=== PATIENT | male | born 1940 | race Caucasian/White ===

== ENCOUNTER 2018-04-09 06:07 | Inpatient (IN) | payer BC ==
[2018-04-09] MEDS: ACETAMINOPHEN 325 MG TAB PO (06:57)
[2018-04-09] MEDS: SODIUM CHLORIDE 0.9% 1L BAG IV* ×2 (06:58→13:18)
[2018-04-09 07:05] LABS: ADD MAN DIFF? NO
[2018-04-09 07:11] LABS: BASOPHIL # 0.1 10^3/ul (0.0-0.1); BASOPHILS % 0.7 % (0.0-2.0); EOSINOPHILS # 0.2 10^3/ul (0.0-0.5); EOSINOPHILS % 1.5 % (0.0-7.0); HEMATOCRIT 40.4 % (42.0-52.0); HEMOGLOBIN 13.5 g/dl (14.0-18.0); LYMPHOCYTES # 1.5 10^3/ul (0.8-2.9); LYMPHOCYTES % 11.6 % (15.0-51.0); MEAN CORPUSCULAR HEMOGLOBIN 27.7 pg (29.0-33.0); MEAN CORPUSCULAR HGB CONC 33.4 g/dl (32.0-37.0); MEAN CORPUSCULAR VOLUME 82.8 fl (82.0-101.0); MEAN PLATELET VOLUME 10.1 fl (7.4-10.4); MONOCYTE # 1.1 10^3/ul (0.3-0.9); MONOCYTES % 8.7 % (0.0-11.0); NEUTROPHIL # 9.9 10^3/ul (1.6-7.5); NEUTROPHILS % 76.9 % (39.0-77.0); PLATELET COUNT 395 10^3/UL (140-415); RED BLOOD COUNT 4.88 10^6/ul (4.70-6.10); RED CELL DISTRIBUTION WIDTH 14.9 % (11.5-14.5)
[2018-04-09 07:11] LABS: WHITE BLOOD COUNT 12.8 10^3/ul (4.8-10.8)
[2018-04-09] MEDS: DILTIAZEM 25 MG INJ IV (07:23)
[2018-04-09 07:27] LABS: ALANINE AMINOTRANSFERASE 22 IU/L (13-69); ALBUMIN 4.2 g/dl (3.3-4.9); ALBUMIN/GLOBULIN RATIO 1.44; ALKALINE PHOSPHATASE 63 IU/L (42-121); ANION GAP 15 (5-13); ASPARTATE AMINO TRANSFERASE 28 IU/L (15-46); BILIRUBIN,INDIRECT 0.5 mg/dl (0-1.1); BILIRUBIN,TOTAL 0.5 mg/dl (0.2-1.3); BLOOD UREA NITROGEN 10 mg/dl (7-20); CALCIUM 9.2 mg/dl (8.4-10.2); CARBON DIOXIDE 25 mmol/L (21-31); CHLORIDE 99 mmol/L (97-110); CREATININE 0.78 mg/dl (0.61-1.24); GLUCOSE 160 mg/dl (70-220); POTASSIUM 3.9 mmol/L (3.5-5.1); SODIUM 139 mmol/L (135-144); TOTAL PROTEIN 7.1 g/dl (6.1-8.1)
[2018-04-09 07:30] LABS: INR 0.98; PROTIME 13.1 Sec (11.9-14.9)
[2018-04-09 07:31] LABS: PARTIAL THROMBOPLASTIN TIME 31.6 Sec (23.0-35.0)
[2018-04-09 07:38] LABS: TROPONIN-I < 0.012 ng/ml (0.000-0.120)
[2018-04-09] MEDS: CEFTRIAXONE 1 GM/50 ML (PMX) 50 ML IVPB (08:02)
[2018-04-09] MEDS: AZITHROMYCIN 500MG/NS (PMX) 250 ML IVPB (08:29)
[2018-04-09 08:34] LABS: ADD UMIC NO; UR ASCORBIC ACID NEGATIVE (NEGATIVE); UR BILIRUBIN (Dip) NEGATIVE (NEGATIVE); UR BLOOD (Dip) NEGATIVE (NEGATIVE); UR CLARITY CLEAR (CLEAR); UR COLOR STRAW (YELLOW); UR GLUCOSE (Dip) NEGATIVE (NEGATIVE); UR KETONES (Dip) NEGATIVE (NEGATIVE); UR LEUKOCYTE ESTERASE (Dip) NEGATIVE Leu/ul (NEGATIVE); UR NITRITE (Dip) NEGATIVE (NEGATIVE); UR SPECIFIC GRAVITY (Dip) 1.005 (1.003-1.030); UR TOTAL PROTEIN (Dip) NEGATIVE (NEGATIVE); UR UROBILINOGEN (Dip) NEGATIVE (NEGATIVE)
[2018-04-09] MEDS ORDERED: GLUCOSE GEL 15 GRAM TUBE BUCCAL (09:00)
[2018-04-09] MEDS ORDERED: NACL 0.9% 3 ML SYG IV (09:00)
[2018-04-09] MEDS ORDERED: DEXTROSE 50% 50 ML SYRINGE IV ×2 (09:00)
[2018-04-09] MEDS ORDERED: ONDANSETRON 4 MG INJ IV (09:00)
[2018-04-09] MEDS ORDERED: ASPIRIN 81 MG TAB PO (09:00)
[2018-04-09] MEDS ORDERED: GLUCOSE GEL 15 GRAM TUBE PO ×2 (09:00)
[2018-04-09] MEDS ORDERED: GLUCAGON 1 MG INJ IM (09:00)
[2018-04-09] MEDS ORDERED: ENOXAPARIN 80 MG/0.8 ML SYG SC (09:00)
[2018-04-09] MEDS ORDERED: LEVALBUTEROL (NEB) 0.31 MG/3 ML AMP HHN (09:00)
[2018-04-09] MEDS ORDERED: morphine 4 MG/ML VIAL IV (09:00)
[2018-04-09] MEDS: GUAIFENESIN/DM 5ML CUP PO ×3 (10:11→23:37)
[2018-04-09] MEDS: AMLODIPINE 10 MG TAB PO (10:12)
[2018-04-09] MEDS: METOPROLOL (XL) 100 MG TAB PO (10:12)
[2018-04-09] MEDS: DOXAZOSIN 2 MG TAB PO (10:13)
[2018-04-09] MEDS: ATORVASTATIN 20 MG TAB PO (10:13)
[2018-04-09] MEDS: HYDROCHLOROTHIAZIDE 25 MG TAB PO (10:13)
[2018-04-09] MEDS: LISINOPRIL 20 MG TAB PO (10:13)
[2018-04-09] MEDS: DOCUSATE SODIUM 100 MG CAP PO ×2 (10:16→21:52)
[2018-04-09] MEDS: INSULIN GLARGINE [LANTus] (100 UNITS/ML) SYG SC (10:47)
[2018-04-09] MEDS: GUAIFENESIN/DM (SR) TAB PO (11:49)
[2018-04-09] MEDS: INSULIN ASPART [NOVOLOG] 3 ML PEN SC ×3 (12:00→21:00)
[2018-04-09 12:26] LABS: LACTIC ACID 2.3 mmol/L (0.5-2.0)
[2018-04-09] MEDS: APIXABAN 5 MG TABLET PO ×2 (13:18→21:52)
[2018-04-09 15:07] LABS: CREATINE KINASE 226 IU/L (23-200)
[2018-04-09 15:19] LABS: CK INDEX 0.5; CK-MB 1.19 ng/ml (0.0-2.4); TROPONIN-I < 0.012 ng/ml (0.000-0.120)
[2018-04-09 18:56] LABS: CREATINE KINASE 287 IU/L (23-200)
[2018-04-09 18:57] LABS: LACTIC ACID 1.4 mmol/L (0.5-2.0)
[2018-04-09 19:07] LABS: CK INDEX 0.5
[2018-04-09 19:11] LABS: CK-MB 1.31 ng/ml (0.0-2.4); TROPONIN-I < 0.012 ng/ml (0.000-0.120)
[2018-04-10] MEDS: ACCU-CHEK XX (02:00)
[2018-04-10 05:53] LABS: ADD MAN DIFF? NO
[2018-04-10 05:54] LABS: BASOPHIL # 0.1 10^3/ul (0.0-0.1); BASOPHILS % 1.1 % (0.0-2.0); EOSINOPHILS # 0.3 10^3/ul (0.0-0.5); EOSINOPHILS % 2.8 % (0.0-7.0); HEMATOCRIT 36.1 % (42.0-52.0); LYMPHOCYTES % 21.9 % (15.0-51.0); MEAN CORPUSCULAR HEMOGLOBIN 27.6 pg (29.0-33.0); MEAN CORPUSCULAR HGB CONC 33.2 g/dl (32.0-37.0); MEAN PLATELET VOLUME 10.3 fl (7.4-10.4); MONOCYTE # 1.5 10^3/ul (0.3-0.9); MONOCYTES % 16.2 % (0.0-11.0); NEUTROPHIL # 5.3 10^3/ul (1.6-7.5); NEUTROPHILS % 57.3 % (39.0-77.0); PLATELET COUNT 337 10^3/UL (140-415); RED BLOOD COUNT 4.35 10^6/ul (4.70-6.10); RED CELL DISTRIBUTION WIDTH 15.1 % (11.5-14.5)
[2018-04-10 05:54] LABS: WHITE BLOOD COUNT 9.2 10^3/ul (4.8-10.8)
[2018-04-10 06:28] LABS: ALANINE AMINOTRANSFERASE 22 IU/L (13-69); ALBUMIN 3.7 g/dl (3.3-4.9); ALBUMIN/GLOBULIN RATIO 1.42; ALKALINE PHOSPHATASE 52 IU/L (42-121); ANION GAP 11 (5-13); ASPARTATE AMINO TRANSFERASE 31 IU/L (15-46); BILIRUBIN,INDIRECT 0.2 mg/dl (0-1.1); BILIRUBIN,TOTAL 0.2 mg/dl (0.2-1.3); BLOOD UREA NITROGEN 14 mg/dl (7-20); CALCIUM 8.9 mg/dl (8.4-10.2); CARBON DIOXIDE 28 mmol/L (21-31); CHLORIDE 99 mmol/L (97-110); CHOL/HDL RATIO 2.6 RATIO; CHOLESTEROL 73 mg/dl (100-200); CREATININE 0.87 mg/dl (0.61-1.24); GLUCOSE 125 mg/dl (70-220); HDL CHOLESTEROL 28 mg/dl (31-75); LDL CHOLESTEROL,CALCULATED 27 mg/dl; PHOSPHORUS 3.8 mg/dl (2.5-4.9); SODIUM 138 mmol/L (135-144); TOTAL PROTEIN 6.3 g/dl (6.1-8.1); TRIGLYCERIDES 90 mg/dl (0-149)
[2018-04-10 06:53] LABS: THYROID STIMULATING HORMONE 0.536 MIU/L (0.465-4.680)
[2018-04-10] MEDS: INSULIN ASPART [NOVOLOG] 3 ML PEN SC ×4 (08:00→20:01)
[2018-04-10] MEDS: ATORVASTATIN 20 MG TAB PO (08:03)
[2018-04-10] MEDS: GUAIFENESIN/DM (SR) TAB PO (08:03)
[2018-04-10] MEDS: DOCUSATE SODIUM 100 MG CAP PO ×2 (08:03→20:01)
[2018-04-10] MEDS: APIXABAN 5 MG TABLET PO ×2 (08:03→20:02)
[2018-04-10] MEDS: HYDROCHLOROTHIAZIDE 25 MG TAB PO (08:04)
[2018-04-10] MEDS: AMLODIPINE 10 MG TAB PO (08:04)
[2018-04-10] MEDS: LISINOPRIL 20 MG TAB PO (08:04)
[2018-04-10] MEDS: METOPROLOL (XL) 100 MG TAB PO (08:04)
[2018-04-10] MEDS: DOXAZOSIN 2 MG TAB PO (08:04)
[2018-04-10] MEDS: INSULIN GLARGINE [LANTus] (100 UNITS/ML) SYG SC (08:10)
[2018-04-10] MEDS: AZITHROMYCIN 250 MG TAB PO (08:15)
[2018-04-10] MEDS: AMOXICILLIN 500 MG CAP PO ×2 (11:23→22:45)
[2018-04-10] MEDS: GUAIFENESIN/DM 5ML CUP PO ×2 (14:14→19:44)
[2018-04-10] MEDS: METOPROLOL 50 MG TAB PO (15:45)
[2018-04-10] MEDS: CEPASTAT LOZENGE MT (19:44)
[2018-04-10] MEDS: ACETAMINOPHEN 325 MG TAB PO (20:02)
[2018-04-11] MEDS: ACCU-CHEK XX (02:00)
[2018-04-11] MEDS ORDERED: VITAMIN A & D 5 GM OINT PACKET TOP (03:03)
[2018-04-11] MEDS: GUAIFENESIN/DM 5ML CUP PO (03:52)
[2018-04-11 05:21] LABS: ADD MAN DIFF? NO
[2018-04-11 05:26] LABS: WHITE BLOOD COUNT 7.1 10^3/ul (4.8-10.8)
[2018-04-11 05:26] LABS: BASOPHIL # 0.1 10^3/ul (0.0-0.1); EOSINOPHILS # 0.3 10^3/ul (0.0-0.5); EOSINOPHILS % 4.4 % (0.0-7.0); HEMATOCRIT 38.5 % (42.0-52.0); HEMOGLOBIN 12.9 g/dl (14.0-18.0); LYMPHOCYTES # 2.4 10^3/ul (0.8-2.9); LYMPHOCYTES % 33.9 % (15.0-51.0); MEAN CORPUSCULAR HEMOGLOBIN 27.5 pg (29.0-33.0); MEAN CORPUSCULAR HGB CONC 33.5 g/dl (32.0-37.0); MEAN CORPUSCULAR VOLUME 82.1 fl (82.0-101.0); MEAN PLATELET VOLUME 9.8 fl (7.4-10.4); MONOCYTE # 1.3 10^3/ul (0.3-0.9); MONOCYTES % 18.1 % (0.0-11.0); NEUTROPHILS % 41.9 % (39.0-77.0); PLATELET COUNT 327 10^3/UL (140-415); RED BLOOD COUNT 4.69 10^6/ul (4.70-6.10); RED CELL DISTRIBUTION WIDTH 14.8 % (11.5-14.5)
[2018-04-11 06:13] LABS: ANION GAP 9 (5-13); BLOOD UREA NITROGEN 18 mg/dl (7-20); CALCIUM 8.7 mg/dl (8.4-10.2); CARBON DIOXIDE 28 mmol/L (21-31); CHLORIDE 99 mmol/L (97-110); CREATININE 0.85 mg/dl (0.61-1.24); GLUCOSE 148 mg/dl (70-220); POTASSIUM 3.5 mmol/L (3.5-5.1); SODIUM 136 mmol/L (135-144)
[2018-04-11] MEDS: CEPASTAT LOZENGE MT (07:08)
[2018-04-11] MEDS: AMOXICILLIN 500 MG CAP PO ×2 (07:08→13:09)
[2018-04-11] MEDS: SOD CHLORIDE 0.9% 100 ML (07:38)
[2018-04-11] MEDS: IODIXANOL LOCM 100 ML BTL (07:38)
[2018-04-11 07:40] LABS: HEMOGLOBIN A1C 6.4 % (0-5.9)
[2018-04-11] MEDS: INSULIN ASPART [NOVOLOG] 3 ML PEN SC ×2 (07:43→12:12)
[2018-04-11] MEDS: ATORVASTATIN 20 MG TAB PO (08:22)
[2018-04-11] MEDS: METOPROLOL (XL) 100 MG TAB PO (08:22)
[2018-04-11] MEDS: LISINOPRIL 20 MG TAB PO (08:22)
[2018-04-11] MEDS: APIXABAN 5 MG TABLET PO (08:22)
[2018-04-11] MEDS: DOXAZOSIN 2 MG TAB PO (08:22)
[2018-04-11] MEDS: DOCUSATE SODIUM 100 MG CAP PO (08:23)
[2018-04-11] MEDS: HYDROCHLOROTHIAZIDE 25 MG TAB PO (08:23)
[2018-04-11] MEDS: AZITHROMYCIN 250 MG TAB PO (08:23)
[2018-04-11] MEDS: AMLODIPINE 10 MG TAB PO (08:23)
[2018-04-11] MEDS: INSULIN GLARGINE [LANTus] (100 UNITS/ML) SYG SC (08:33)
[2018-04-11] MEDS: GUAIFENESIN/DM (SR) TAB PO (08:39)
== END 2018-04-11 13:00 | disposition home or self-care (01) | DRG 872 ==
LOC: E/R 06:07 → 6WM 07:51
DX: A41.9 Sepsis, unspecified organism (principal); I48.0 Paroxysmal atrial fibrillation; I25.10 Atherosclerotic heart disease of native coronary artery without angina pectoris; I10 Essential (primary) hypertension; E78.00 Pure hypercholesterolemia, unspecified; J02.9 Acute pharyngitis, unspecified; E11.9 Type 2 diabetes mellitus without complications; Z79.84 Long term (current) use of oral hypoglycemic drugs; Z87.891 Personal history of nicotine dependence; Z79.82 Long term (current) use of aspirin
CPT/HCPCS: 36415; 71045; 80048; 80053; 80061; 81003; 82550; 82553; 82962; 83036; 83605; 83735; 84100; 84443; 84484; 85025; 85610; 85730; 87040; 87086; 87400; 87880; 93005; 93306; 96374; 99291-25